=== PATIENT | female | born 1980 | race African-American/Black ===

== ENCOUNTER 2016-11-27 14:35 | Emergency (ER) | payer OTHER ==
[~2016-11-27 14:35] MED LIST: EC-NAPROSYN500 MG PO; FLEXERIL10 MG PO
[2016-11-27 15:33] LABS: URINE SOURCE CLEAN CATCH
[2016-11-27 15:44] LABS: URINE APPEARANCE CLEAR; URINE BILIRUBIN NEG (NEG); URINE BLOOD NEG (NEG); URINE COLOR YELLOW; URINE GLUCOSE NEG (NEG); URINE KETONE NEG (NEG); URINE LEUKOCYTE ESTERASE NEG (NEG); URINE NITRATE NEG (NEG); URINE PROTEIN NEG (NEG); URINE SPECIFIC GRAVITY 1.027 (1.003-1.035)
[2016-11-27 15:57] LABS: CULTURE INDICATED? NO
[2016-11-30 14:57] LABS: CHLAMYDIA TRACH Not Detected (Not Detected); N GONOR Not Detected (Not Detected)
== END 2016-11-27 16:15 | disposition home or self-care (01) ==
LOC: CED 14:35 → CFTX 14:35
PROVIDERS: Physician Assistant
DX: N73.0 Acute parametritis and pelvic cellulitis (principal); N95.2 Postmenopausal atrophic vaginitis; A59.03 Trichomonal cystitis and urethritis; E11.9 Type 2 diabetes mellitus without complications; F17.210 Nicotine dependence, cigarettes, uncomplicated; Z98.890 Other specified postprocedural states
CPT/HCPCS: 81003; 84703; 87491; 87591; 87808; 87905; 96372; 99284; J0696